=== PATIENT | male | born 1965 | race African-American/Black ===

== ENCOUNTER 2019-10-03 04:24 | Day surgery (SDC) | payer BC ==
[2019-10-01 17:27] VITALS: BMI 23.6
[2019-10-03] MEDS ORDERED: PROPOFOL 20 ML ONE (12:04)
[2019-10-03] MEDS ORDERED: MIDAZOLAM HCL 2 MG/2 ML SINGLE DOSE VIAL ONE ×2 (12:04)
[2019-10-03] MEDS ORDERED: ROCURONIUM BROMIDE 100 MG/10 ML VIAL ONE (12:05)
[2019-10-03] MEDS ORDERED: ceFAZolin SODIUM 1 GM VIAL IVPB ONE (12:25)
[2019-10-03] MEDS ORDERED: BUPIVACAINE HCL/PF 0.5% (5 MG/ML) 30 ML VIAL IJ ONE ×2 (12:37)
[2019-10-03] MEDS ORDERED: HYDROmorphone HCl 2 MG/ML VIAL ONE (12:46)
[2019-10-03] MEDS ORDERED: NEOSTIGMINE METHYLSULFATE 0.5 MG/ML - 10 ML MDV ONE (13:44)
[2019-10-03] MEDS ORDERED: ONDANSETRON 4 MG/2 ML VIAL IVPUSH PRN (14:05)
[2019-10-03] MEDS ORDERED: oxyCODONE HCL 5 MG TABLET PO PRN (14:05)
[2019-10-03] MEDS ORDERED: PROMETHAZINE HCL 25 MG/1 ML VIAL IVPUSH PRN (14:05)
--- NOTE | 2019-10-03 14:17 | OP ---
Operative Note - Note: Operative Date: 10/03/19 Pre-Operative Diagnosis: Right inguinal hernia Operation: Right inguinal hernia repair with mesh Post-Operative Diagnosis: Same as Pre-op Surgeon: Colby Maldonado Shear Operator: Jason Oakes Anesthesiologist/FOOD COOKING MACHINE OPERATOR: Zaira Mendez MD Anesthesia: General Estimated Blood Loss (mls): 10 Operative Report Dictated: Yes
--- NOTE | 2019-10-03 14:18 | SURG ---
Surgery Last Inserter Note Last Inserter: Jason Oakes PA-C Date of Service: 10/03/19 Diagnosis: Right inguinal hernia Procedure: Right inguinal hernia repair with mesh I was present for the entirety of the operative procedure. For further detail, please refer to operative report. Visit type - Case Type Case Type: Scheduled - Emergency Emergency Visit: No - New patient This patient is new to me today: Yes Date on this admission: 10/03/19 - Critical Care Critical Care patient: No
[2019-10-03] MEDS ORDERED: ONDANSETRON 4 MG/2 ML VIAL ONE (16:58)
[2019-10-03] MEDS: LACTATED RINGERS SOLUTION 1,000 ML IV SCH (18:47)
[2019-10-04] MEDS ORDERED: ONDANSETRON 4 MG/2 ML VIAL IVPUSH PRN (00:51)
[2019-10-04] MEDS: LACTATED RINGERS SOLUTION 1,000 ML IV SCH (05:08)
[2019-10-04] MEDS ORDERED: ACETAMINOPHEN 325 MG TABLET (FP) PO PRN (06:01)
[2019-10-04 06:28] VITALS: TEMP 98.3
--- NOTE | 2019-10-04 09:13 | PN ---
Progress Note (short form) - Note Progress Note: Surgery POD #1 right inguinal hernia repair. Patient stayed for observation because he was feeling lethargic after surgery. He did well overnight and is tolerating his diet and voiding. He denies any CP, SOB, N/V, fever or chills and his pain is controlled. Vital Signs Temp 98.3 F 10/04/19 06:00 Pulse 88 10/04/19 06:00 Resp 18 10/04/19 06:00 BP 144/92 10/04/19 06:00 Pulse Ox 97 10/04/19 06:00 Intake & Output 10/03/19 10/03/19 10/04/19 11:59 23:59 11:59 Intake Total 1900 Output Total 610 Balance 1290 Intake: IV 1900 Output: Urine 600 Estimated Blood Loss 10 PE: A&Ox3, NAD Unlabored resp on RA ABD: Soft, NT, ND, dressing c/d/i with surrounding tissue intact with no tracking erythema edema or d/c B/L LE compartments soft, supple and non-tender with +2 DP pulses. Problem List - Problems (1) Inguinal hernia Assessment/Plan: POD#1 right inguinal hernia repair doing well. -scrotal support PRN -pain control -meds reconciled -d/c home -f/u with DR Maldonado as directed Evaluation and plan discussed with Dr Maldonado Code(s): K40.90 - UNIL INGUINAL HERNIA, W/O OBST OR GANGR, NOT SPCF RECUR
[2019-10-04] MEDS ORDERED: CARVEDILOL 6.25 MG TABLET (FP) PO SCH (10:00)
[2019-10-04] MEDS ORDERED: METHIMAZOLE 10 MG TABLET (FP) PO SCH (10:00)
[2019-10-04 11:08] VITALS: BP 131/86; PULSE 76
--- NOTE | 2019-10-08 20:50 | OP ---
DATE OF OPERATION: 10/03/2019 PREOPERATIVE DIAGNOSIS: Right inguinal hernia. POSTOPERATIVE DIAGNOSIS: Right inguinal hernia. PROCEDURE: Repair right inguinal hernia with Pro Practice Director mesh. SURGEON: Colby Maldonado MD. MANAGER FLOAT: Jason Oakes PA-C. ANESTHESIA: General. OPERATIVE FINDINGS: There was an indirect right inguinal hernia, and an attenuated floor of the inguinal canal. The rest of the findings are unremarkable. PROCEDURE: The patient was placed on the operating room table in the supine position. After induction of general anesthesia, the patient's right lower quadrant was prepped with ChloraPrep and draped in sterile fashion. A timeout was taken. A right transverse groin incision was mapped out, incision was made with a scalpel, and taken down through skin, subcutaneous tissue, and Kaela's fascia. The external oblique fascia was divided proximally and distally in the direction of its fibers opening up the external ring. The cord structures and nerve were elevated to the level of the pubic tubercle, and a [place] drain placed around them for retraction and identification purposes. The previously noted findings were observed. The hernia was reduced, and the sac was dissected bluntly from the cord structures and trace up to the internal ring, where the sac was reduced. Next a piece of ProGrip mesh was fashioned into the defect and anchored at the shelving edge, pubic tubercle, and conjoined tendon respectively with interrupted 2-0 Prolene. A keyhole was created through the cord structures and the tails of the mesh crossed above the level of the internal ring and anchored there with interrupted 2-0 Prolene. The tails of the mesh were further tucked under the proximal external oblique fascia. Hemostasis was checked for and noted to be good, and the wound was copiously irrigated with sterile saline. The cord structure and nerve returned to normal anatomic position, and the external oblique fascia closed over them using continuous 2-0 Vicryl recreating the external ring. Kaela's fascia was reapproximated with interrupted 2-0 Vicryl, the deep dermis with interrupted 3-0 Vicryl, and the skin edges with 4-0 Monocryl in a subcuticular continuous fashion. Steri-Strips and dry sterile dressings were placed, and the procedure terminated at this point. The patient was aroused from general anesthesia and transferred to the post anesthesia care unit in stable condition awake and alert. ESTIMATED BLOOD LOSS: 10 mL. REPLACEMENTS: Crystalloid. DRAINS: None. SPECIMEN: None. I, Colby Maldonado, was physically present in the operating room from the time the patient was placed on the operating room table until he was transferred to the postanesthesia care unit in my accompaniment. MD SOFIA Sandoval/[id number] MTDD
== END 2019-10-04 11:47 | disposition home or self-care (01) ==
LOC: JASU-SURG 04:24 → J7W 20:21 → JASU-SURG 10-04 11:47
PROVIDERS: ATTEND Surgery
PROC: 0YU50JZ Supplement Right Inguinal Region with Synthetic Substitute, Open Approach (ICD-10-PCS; principal; 2019-10-03 12:30)
DX: K40.90 Unilateral inguinal hernia, without obstruction or gangrene, not specified as recurrent (principal)
CPT/HCPCS: 94760

== ENCOUNTER 2020-10-13 10:59 | Day surgery (SDC) | payer BC ==
[2020-10-09 11:49] VITALS: BMI 23.1
[2020-10-13] MEDS ORDERED: TRANEXAMIC ACID 1000 MG/10 ML VIAL IVPUSH ONE (11:20)
[2020-10-13] MEDS ORDERED: CEFAZOLIN 2 GM in DEXTROSE 5%-WATER - 50 ML IVPB ONE (11:20)
[2020-10-13] MEDS ORDERED: CELECOXIB 200 MG CAPSULE PO ONE (11:20)
[2020-10-13] MEDS ORDERED: BUPIVACAINE HCL/PF 0.5% (5 MG/ML) 30 ML VIAL IJ ONE (12:35)
[2020-10-13] MEDS ORDERED: MIDAZOLAM HCL 2 MG/2 ML SINGLE DOSE VIAL ONE ×2 (12:35→14:15)
[2020-10-13] MEDS ORDERED: VANCOMYCIN 1,000 MG VIAL (RESTRICTED TO ID ONLY) ONE (13:15)
[2020-10-13] MEDS ORDERED: ceFAZolin SODIUM 1 GM VIAL ONE ×2 (13:15→13:18)
[2020-10-13] MEDS ORDERED: TRANEXAMIC ACID 1000 MG/10 ML VIAL ONE (13:18)
[2020-10-13] MEDS ORDERED: PROPOFOL 20 ML ONE ×3 (13:21)
[2020-10-13] MEDS ORDERED: MAG HYDROX/AL HYDROX/SIMETH 30 ML UNIT-DOSE CUP PO PRN (14:28)
[2020-10-13] MEDS ORDERED: MAGNESIUM HYDROX 2400MG/30ML ORAL SUSPENSION 30 ML CUP PO PRN (14:28)
[2020-10-13] MEDS ORDERED: LACTATED RINGERS SOLUTION 1,000 ML IV SCH (14:30)
[2020-10-13] MEDS ORDERED: ACETAMINOPHEN INJECTION 100 ML IVPB ONE (16:13)
[2020-10-13] MEDS ORDERED: oxyCODONE HCL 5 MG TABLET PO PRN (16:26)
[2020-10-13] MEDS ORDERED: ONDANSETRON 4 MG/2 ML VIAL IVPUSH PRN (16:26)
[2020-10-13] MEDS ORDERED: ACETAMINOPHEN 1000 MG/100 ML VIAL (NON FORMULARY) IVPB ONE (16:26)
[2020-10-13] MEDS ORDERED: ONDANSETRON 4 MG/2 ML VIAL ONE (16:41)
[2020-10-13] MEDS: oxyCODONE HCL 5 MG TABLET PO PRN ×2 (20:01→23:23)
[2020-10-13] MEDS: CEFAZOLIN 2 GM/D5W 2 GM/50 ML ML IVPB SCH (21:34)
[2020-10-13] MEDS: CARVEDILOL 6.25 MG TABLET (FP) PO SCH (21:35)
[2020-10-13] MEDS: SENNOSIDES/DOCUSATE COMBO (SENNA PLUS) TABLET (UD) PO SCH (21:35)
[2020-10-13] MEDS: METHIMAZOLE 10 MG TABLET PO SCH (21:35)
[2020-10-13] MEDS: ACETAMINOPHEN 500 MG TABLET (FP) PO SCH (23:22)
[2020-10-13] MEDS: ONDANSETRON 4 MG/2 ML VIAL IVPUSH PRN (23:42)
[2020-10-14] MEDS: ACETAMINOPHEN 500 MG TABLET (FP) PO SCH ×6 (05:45→23:37)
[2020-10-14] MEDS: CEFAZOLIN 2 GM/D5W 2 GM/50 ML ML IVPB SCH (06:02)
[2020-10-14] MEDS: ONDANSETRON 4 MG/2 ML VIAL IVPUSH PRN ×2 (06:28→15:31)
[2020-10-14] MEDS: ASPIRIN 325 MG TABLET PO SCH (07:50)
[2020-10-14 07:55] LABS: HEMATOCRIT 32.6 % (35.4-49); MCH 29.5 pg (25.7-33.7); MCHC 33.8 g/dl (32.0-35.9); MEAN CELL VOLUME 87.1 fl (80-96); MEAN PLT VOLUME 7.5 fl (7.5-11.1); PLATELET COUNT 182 10^3/uL (134-434); RBC 3.74 M/mm3 (4.00-5.60); RDW 13.2 % (11.9-15.9); WHITE BLOOD COUNT 7.5 K/mm3 (4.0-10.8)
[2020-10-14] MEDS: CARVEDILOL 6.25 MG TABLET (FP) PO SCH ×2 (09:21→21:40)
[2020-10-14] MEDS: MULTIVITAMINS (DAILY MVI) TABLET (FP) PO SCH (09:21)
[2020-10-14] MEDS: METHIMAZOLE 10 MG TABLET PO SCH ×2 (09:21→21:40)
[2020-10-14] MEDS: SENNOSIDES/DOCUSATE COMBO (SENNA PLUS) TABLET (UD) PO SCH ×2 (09:21→21:40)
[2020-10-14] MEDS: PANTOPRAZOLE 40 MG TABLET PO SCH (09:21)
[2020-10-14] MEDS: KETOROLAC TROMETHAMINE 30 MG/1 ML VIAL IVPUSH SCH ×3 (09:44→21:39)
[2020-10-14] MEDS ORDERED: LOCK ITEM NR ONE (20:15)
[2020-10-15] MEDS: KETOROLAC TROMETHAMINE 30 MG/1 ML VIAL IVPUSH SCH (04:20)
[2020-10-15] MEDS: ACETAMINOPHEN 500 MG TABLET (FP) PO SCH ×2 (05:30→10:35)
[2020-10-15 07:51] LABS: HEMATOCRIT 31.6 % (35.4-49); HEMOGLOBIN 10.7 GM/dl (11.7-16.9); MCH 29.4 pg (25.7-33.7); MEAN CELL VOLUME 86.7 fl (80-96); MEAN PLT VOLUME 7.6 fl (7.5-11.1); PLATELET COUNT 183 10^3/uL (134-434); RBC 3.65 M/mm3 (4.00-5.60); RDW 13.1 % (11.9-15.9); WHITE BLOOD COUNT 7.3 K/mm3 (4.0-10.8)
[2020-10-15] MEDS: MULTIVITAMINS (DAILY MVI) TABLET (FP) PO SCH (10:35)
[2020-10-15] MEDS: SENNOSIDES/DOCUSATE COMBO (SENNA PLUS) TABLET (UD) PO SCH (10:35)
[2020-10-15] MEDS: METHIMAZOLE 10 MG TABLET PO SCH (10:35)
[2020-10-15] MEDS: ASPIRIN 325 MG TABLET PO SCH (10:35)
[2020-10-15] MEDS: PANTOPRAZOLE 40 MG TABLET PO SCH (10:35)
[2020-10-15] MEDS: CARVEDILOL 6.25 MG TABLET (FP) PO SCH (10:35)
[2020-10-15 13:45] VITALS: BP 122/78; PULSE 86; TEMP 98
== END 2020-10-15 14:58 | disposition home health service (06) ==
LOC: FASUSAT 10:59 → FM/S 17:29 → FASUSAT 10-15 14:58
PROVIDERS: ATTEND Orthopaedic Surgery
PROC: 8E0YXBZ Computer Assisted Procedure of Lower Extremity (ICD-10-PCS; 2020-10-13)
PROC: 8E0Y0CZ Robotic Assisted Procedure of Lower Extremity, Open Approach (ICD-10-PCS; 2020-10-13)
PROC: 0SRB0J9 Replacement of Left Hip Joint with Synthetic Substitute, Cemented, Open Approach (ICD-10-PCS; principal; 2020-10-13 14:42)
DX: M16.12 Unilateral primary osteoarthritis, left hip (principal)
CPT/HCPCS: 20985; 27130; C1776; S2900; 36415; 73502-TC-LT-FY; 85027; 94760; 97010-GP; 97116-GP; 97163-GP; J0131